=== PATIENT | male | born 1940 | race Two or more races ===

== ENCOUNTER 2025-06-04 14:48 | Inpatient (IN) | payer OTHER ==
[~2025-06-04] VITALS: Ht 55.9 cm; Wt 81.6 kg
[2025-06-04] MEDS ORDERED: CEFTRIAXONE SODIUM 1,000 MG VIAL IV ONE (15:45)
[2025-06-04] MEDS ORDERED: ENALAPRILAT DIHYDRATE 1.25 MG/ML VIAL IV ONE (15:45)
[2025-06-04] MEDS ORDERED: METHYLPREDNISOLONE SOD SUCC 125 MG VIAL IV ONE (15:45)
[2025-06-04] MEDS ORDERED: IPRATROPIUM BROMIDE 0.5 MG/2.5 ML AMPUL.NEB IH SCH (15:45)
[2025-06-04] MEDS ORDERED: LEVALBUTEROL HCL 1.25 MG/3 ML SOLUTION IH SCH (15:45)
[2025-06-04] MEDS ORDERED: ACETAMINOPHEN 500 MG GEL..CAP PO ONE (16:00)
[2025-06-04 16:42] LABS: BASO % 0.2 % (0.1-1.2); EOS # 0.06 (0.04-0.54); EOS % 0.5 % (0.7-7.0); LYMPH # 0.42 (1.18-3.74); LYMPH % 3.5 % (19.3-53.1); MEAN PLATELET VOLUME 10.80 fl (9.4-12.4); MONO # 1.05 (0.24-0.82); MONO % 8.7 % (4.7-12.5); NEUT # 10.45 (1.56-6.13); NEUT % 86.7 % (34.0-71.1); RED CELL DISTRIBUTION WIDTH 13.5 % (11.6-14.4)
[2025-06-04 17:01] LABS: INR 1.09
[2025-06-04 17:02] LABS: COVID-19 AG NEGATIVE (NEGATIVE)
[2025-06-04 17:03] LABS: BUN CREA RATIO 12.0 (7.0-25.0); CREATININE SERUM 0.83 mg/dL (0.70-1.30); GFR 87.84; GLUCOSE FASTING 117.0 mg/dL (65-100); OSMOLALITY SERUM 276.0 MOSM/KG (275-295)
[2025-06-04 17:22] LABS: ERYTHROCYTE SEDIMENTATION RATE 29 mm/hr (0-20)
[2025-06-04] MEDS ORDERED: OSELTAMIVIR PHOSPHATE 75 MG CAPSULE PO STA (23:19)
[2025-06-04] MEDS ORDERED: OSELTAMIVIR PHOSPHATE 75 MG CAPSULE PO ONE (23:57)
[2025-06-05] MEDS ORDERED: LEVALBUTEROL HCL 1.25 MG/3 ML SOLUTION IH ONE ×2 (00:08→07:43)
[2025-06-05] MEDS ORDERED: IPRATROPIUM BROMIDE 0.5 MG/2.5 ML AMPUL.NEB IH ONE (00:08)
[2025-06-05] MEDS ORDERED: ENOXAPARIN SODIUM 60 MG/0.6 ML SYRINGE SUBCUTANEO SCH ×2 (00:32→11:16)
[2025-06-05] MEDS ORDERED: ENOXAPARIN SODIUM 60 MG/0.6 ML SYRINGE SUBCUTANEO ONE ×2 (00:34→09:54)
[2025-06-05] MEDS ORDERED: NIFEDIPINE 10 MG CAPSULE PO ONE ×2 (00:34→01:00)
[2025-06-05] MEDS ORDERED: ENALAPRILAT DIHYDRATE 1.25 MG/ML VIAL IV ONE ×2 (00:46→01:00)
[2025-06-05] MEDS ORDERED: LEVALBUTEROL HCL 1.25 MG/3 ML SOLUTION IH SCH (01:00)
[2025-06-05 01:49] LABS: URINE APPEARANCE Clear; URINE BILIRRUBIN Negative (NEGATIVE); URINE BLOOD Small; URINE COLOR Yellow; URINE KETONE Trace (NEGATIVE); URINE LEUKOCYTE Negative; URINE NITRATE Negative; URINE PROTEIN Trace (NEGATIVE); URINE UROBILINOGEN 0.2 E.U./dl
[2025-06-05 01:53] LABS: URINE RBC 29.4 uL (0.0-20.8)
[2025-06-05 02:19] LABS: URINE BACTERIA 3.5 uL (0.0-1933); URINE CAST 0.14 uL (0.0-1.40); URINE EPITHELIAL CELLS 0.6 uL (0.0-38.8); URINE GLUCOSE 100 MG/DL (NEGATIVE); URINE WBC 1.6 uL (0.0-23.2)
[2025-06-05] MEDS ORDERED: OSELTAMIVIR PHOSPHATE 75 MG CAPSULE PO SCH (11:13)
[2025-06-05] MEDS ORDERED: ACETAMINOPHEN 325 MG TABLET PO PRN (11:15)
[2025-06-05] MEDS ORDERED: AMLODIPINE BESYLATE 5 MG TABLET PO SCH (11:22)
[2025-06-05] MEDS ORDERED: FAMOTIDINE/PF 20 MG in 0.9 % SODIUM CHLORIDE 8 ML IV PUSH SCH (11:24)
[2025-06-05] MEDS ORDERED: 0.9 % SODIUM CHLORIDE 1,000 ML IV SCH (11:30)
[2025-06-05] MEDS ORDERED: hydrALAZINE HCL 20 MG VIAL IV PRN (11:30)
[2025-06-05] MEDS ORDERED: LABETALOL HCL 100 MG/20 ML ML IV PUSH PRN (11:30)
[2025-06-05 13:54] LABS: INR 1.19
[2025-06-05 14:06] LABS: CKMB 5.0 NG/ML (0.5-3.6)
[2025-06-05 14:10] VITALS: BP 142/84; O2SAT 97
[2025-06-05 14:17] VITALS: BP 125/86
[2025-06-05 15:20] VITALS: BP 140/96; O2SAT 88
[2025-06-05] MEDS ORDERED: CEFTRIAXONE SODIUM 2,000 MG VIAL IV SCH (17:00)
[2025-06-05 20:00] VITALS: BP 135/66; O2SAT 96
[2025-06-05] MEDS ORDERED: ENOXAPARIN SODIUM 80 MG/0.8 ML SYRINGE SUBCUTANEO SCH (21:00)
[2025-06-05 23:48] VITALS: BP 143/81; O2SAT 90
[2025-06-06 05:00] VITALS: BP 137/95; O2SAT 97
[2025-06-06 07:15] VITALS: BP 149/93; O2SAT 97
[2025-06-06 12:00] VITALS: BP 139/79; O2SAT 97
[2025-06-06 15:44] VITALS: BP 119/82; O2SAT 100
[2025-06-06 20:00] VITALS: BP 134/69; O2SAT 96
[2025-06-06 23:00] VITALS: BP 149/81; O2SAT 96
[2025-06-07 04:00] VITALS: BP 148/86; O2SAT 97
[2025-06-07 07:44] VITALS: BP 152/85; O2SAT 96
[2025-06-07 12:00] VITALS: BP 141/78; O2SAT 100
[2025-06-07 15:15] VITALS: BP 135/57; O2SAT 98
[2025-06-07 21:00] VITALS: BP 160/82; O2SAT 100
[2025-06-07 23:25] VITALS: BP 153/85; O2SAT 99
[2025-06-08 04:00] VITALS: BP 141/67; O2SAT 96
[2025-06-08 07:27] VITALS: BP 148/78; O2SAT 98
[2025-06-08] MEDS ORDERED: AMLODIPINE BESYLATE 10 MG TABLET PO SCH (09:00)
[2025-06-08 12:00] VITALS: BP 131/74; O2SAT 97
[2025-06-08 15:41] VITALS: BP 143/77; O2SAT 95
[2025-06-08 20:00] VITALS: BP 134/69; O2SAT 97
[2025-06-08 23:19] VITALS: BP 148/78; O2SAT 97
[2025-06-09 04:00] VITALS: BP 140/56; O2SAT 96
[2025-06-09 07:15] VITALS: BP 163/84; O2SAT 98
[2025-06-09 12:00] VITALS: BP 162/75; O2SAT 95
[2025-06-09 12:44] LABS: BASO % 0.2 % (0.1-1.2); EOS # 0.37 (0.04-0.54); EOS % 7.3 % (0.7-7.0); LYMPH # 0.89 (1.18-3.74); LYMPH % 17.5 % (19.3-53.1); MEAN PLATELET VOLUME 10.60 fl (9.4-12.4); MONO # 0.71 (0.24-0.82); NEUT # 3.11 (1.56-6.13); NEUT % 60.9 % (34.0-71.1); RED CELL DISTRIBUTION WIDTH 13.0 % (11.6-14.4)
[2025-06-09 12:45] LABS: MONO % 13.9 % (4.7-12.5)
[2025-06-09 13:07] LABS: BUN CREA RATIO 25.0 (7.0-25.0); CREATININE SERUM 0.51 mg/dL (0.70-1.30); GFR 154.1; GLUCOSE FASTING 101.0 mg/dL (65-100); OSMOLALITY SERUM 278.0 MOSM/KG (275-295)
[2025-06-09 15:00] VITALS: BP 113/67; O2SAT 96
[2025-06-09 18:24] VITALS: BP 114/77; O2SAT 99
[2025-06-10 03:26] VITALS: BP 143/83; O2SAT 94
[2025-06-10 08:46] VITALS: BP 136/75; O2SAT 94
== END 2025-06-10 16:18 | disposition home or self-care (01) | DRG 193 ==
LOC: ER 14:48 → ICU 06-05 11:17 → MEDJ 06-09 17:59
PROVIDERS: General Practice; ADMIT Internal Medicine; ATTEND Internal Medicine
PROC: B32TYZZ Computerized Tomography (CT Scan) of Left Pulmonary Artery using Other Contrast (ICD-10-PCS; 2025-06-04)
PROC: B32SYZZ Computerized Tomography (CT Scan) of Right Pulmonary Artery using Other Contrast (ICD-10-PCS; 2025-06-04)
PROC: 8E0ZXY6 Isolation (ICD-10-PCS; principal; 2025-06-05)
PROC: 4A12X4Z Monitoring of Cardiac Electrical Activity, External Approach (ICD-10-PCS; 2025-06-05)
PROC: B246ZZZ Ultrasonography of Right and Left Heart (ICD-10-PCS; 2025-06-05)
PROC: 3E0F7SF Introduction of Other Gas into Respiratory Tract, Via Natural or Artificial Opening (ICD-10-PCS; 2025-06-05)
PROC: 3E0F7GC Introduction of Other Therapeutic Substance into Respiratory Tract, Via Natural or Artificial Opening (ICD-10-PCS; 2025-06-05)
DX: J10.1 Influenza due to other identified influenza virus with other respiratory manifestations (principal); I26.99 Other pulmonary embolism without acute cor pulmonale; E87.3 Alkalosis; D69.6 Thrombocytopenia, unspecified; E78.5 Hyperlipidemia, unspecified; F17.200 Nicotine dependence, unspecified, uncomplicated; I10 Essential (primary) hypertension; R09.02 Hypoxemia